=== PATIENT | male | born 1995 | race Caucasian/White ===

== ENCOUNTER 2019-05-10 07:19 | Emergency (ER) | payer BC ==
[2019-05-10 07:22] VITALS: Wt 88.6 kg
[2019-05-10] MEDS ORDERED: CYCLOBENZAPRINE10 MG PO (08:14)
[2019-05-10] MEDS ORDERED: HYDROCODON-ACE1 EAC7 PO (08:14)
[2019-05-10 08:33] VITALS: BP 130/76
== END 2019-05-10 08:34 | disposition home or self-care (01) ==
LOC: D.ER 07:19
DX: S39.012A Strain of muscle, fascia and tendon of lower back, initial encounter (principal)